=== PATIENT | male | born 2000 | race Caucasian/White ===

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

== ENCOUNTER 2022-03-01 22:07 | Emergency (ER) | payer OTHER ==
[2022-03-01 22:44] LABS: BASO % 0.5 % (0.0-1.0); EOS # 0.2 10*3/uL (0.0-0.4); EOS % 1.7 % (1.0-4.0); HEMATOCRIT 44.4 % (42.0-52.0); LYMPH # 2.5 10*3/uL (1.3-4.4); LYMPH % 28.2 % (27.0-41.0); MEAN CELL VOLUME 81.6 fl (80.0-94.0); MEAN CORPUSCULAR HGB 26.3 pg (27.0-31.0); MEAN CORPUSCULAR HGB CONC 32.2 g/dl (33.0-37.0); MEAN PLATELET VOLUME 10.9 fl (9.6-12.3); MONO # 0.7 10*3/uL (0.1-1.0); MONO % 7.5 % (3.0-9.0); NEUT # 5.5 10*3/uL (2.3-7.9); NEUT % 61.9 % (47.0-73.0); PLATELET COUNT AUTOMATED 227 10*3/uL (130-400); RED BLOOD COUNT 5.44 10*6/uL (4.50-5.90); RED CELL DISTRI WIDTH 13.6 % (0-14.5); WHITE BLOOD COUNT 8.8 10*3/uL (4.8-10.8)
[2022-03-01 22:53] LABS: BILIRUBIN Negative (Negative); BLOOD Negative (Negative); CLARITY Clear (Clear); COLOR Yellow (Yellow); GLUCOSE Negative (Negative); KETONE Negative (Negative); LEUKO ESTERASE Negative (Negative); NITRITE Negative (Negative)
[2022-03-01 23:00] LABS: ALKALINE PHOSPHATASE 92 U/L (45-117); BUN 10 mg/dl (7-24); CHLORIDE 109 mmol/L (98-107); CREATININE 1.09 mg/dL (0.70-1.30); LIPASE 62 U/L (73-393); POTASSIUM 4.2 mmol/L (3.5-5.1); SGOT/AST 16 IU/L (3-35); SGPT/ALT 27 U/L (12-78); SODIUM 141 mmol/L (136-145); TOTAL PROTEIN 7.3 gm/dL (6.4-8.2)
== END 2022-03-02 00:51 | disposition home or self-care (01) ==
LOC: ED 22:07
PROVIDERS: Emergency Medicine
DX: S39.011A Strain of muscle, fascia and tendon of abdomen, initial encounter (principal); F17.200 Nicotine dependence, unspecified, uncomplicated; Z88.0 Allergy status to penicillin; X50.0XXA Overexertion from strenuous movement or load, initial encounter; Y93.89 Activity, other specified; Y92.89 Other specified places as the place of occurrence of the external cause; Y99.8 Other external cause status

== ENCOUNTER 2023-06-20 22:35 | Emergency (ER) | payer OTHER | END 2023-06-20 23:19 | disposition left against medical advice (07) | LOC: ED 22:35 | DX: R10.9 Unspecified abdominal pain (principal); R42 Dizziness and giddiness; R11.10 Vomiting, unspecified; Z53.21 Procedure and treatment not carried out due to patient leaving prior to being seen by health care provider ==

== ENCOUNTER 2023-07-11 10:16 | Emergency (ER) | payer OTHER ==
[~2023-07-11] VITALS: Wt 77.1 kg
== END 2023-07-11 13:09 | disposition home or self-care (01) ==
LOC: ED 10:16
DX: S61.200A Unspecified open wound of right index finger without damage to nail, initial encounter (principal); Z88.0 Allergy status to penicillin; W45.8XXA Other foreign body or object entering through skin, initial encounter; Y93.89 Activity, other specified; Y92.89 Other specified places as the place of occurrence of the external cause; Y99.8 Other external cause status

== ENCOUNTER 2025-05-26 17:25 | Emergency (ER) | payer SELFPAY ==
[~2025-05-26] VITALS: Wt 77.1 kg
[2025-05-26] MEDS ORDERED: fentaNYL CITRATE/PF 50 MCG/ML SYRINGE IV ONE (17:50)
[2025-05-26] MEDS ORDERED: Tdap Vaccine 0.5 ML SYR (Adult Vaccine) IM ONE (17:50)
[2025-05-26] MEDS ORDERED: ceFAZolin sodium 2 GM in SYRINGE INFUSION 20 ML IV ONE (17:50)
[2025-05-26] MEDS ORDERED: ceFAZolin sodium/sodium chlor 10 ML IV SCH (18:00)
[2025-05-26] MEDS ORDERED: SODIUM CHLORIDE 0.9% 50 ML IV ONE (19:07)
== END 2025-05-26 19:41 | disposition short-term general hospital (02) ==
LOC: ED 17:25
DX: S51.012A Laceration without foreign body of left elbow, initial encounter (principal); S51.011A Laceration without foreign body of right elbow, initial encounter; S81.012A Laceration without foreign body, left knee, initial encounter; S81.011A Laceration without foreign body, right knee, initial encounter; Z88.0 Allergy status to penicillin; V86.55XA Driver of 3- or 4- wheeled all-terrain vehicle (ATV) injured in nontraffic accident, initial encounter; Y93.I9 Activity, other involving external motion; Y92.488 Other paved roadways as the place of occurrence of the external cause; Y99.8 Other external cause status